=== PATIENT | male | born 2000 | race Caucasian/White ===

== ENCOUNTER 2023-11-17 19:07 | Emergency (ER) | payer OTHER ==
[~2023-11-17] VITALS: Ht 185.4 cm; Wt 110.4 kg
[2023-11-17] MEDS ORDERED: NEURONTIN300 MG PO (21:51)
[2023-11-17] MEDS ORDERED: METHOCARBAMOL500 MG PO (21:52)
[2023-11-17] MEDS ORDERED: METOPROLOL TART25 MG PO (21:53)
[2023-11-17] MEDS ORDERED: HYDRALAZINE HCL50 MG PO (21:54)
[2023-11-17] MEDS ORDERED: GABAPENTIN 300 MG CAP PO ONE (22:15)
[2023-11-17 22:49] LABS: BASOPHILS 0.6 % (0-2); EOSINOPHILS 3.6 % (0-6); LYMPHOCYTES 11.9 % (24-44); MCH 27.6 (27-36); MCHC 33.5 g/dl (30-36); MCV 82.5 fl (81-99); MONOCYTES 7.6 % (0-12); NEUTROPHILS 76.3 % (39-80); PLATELET COUNT 306 K/uL (140-440); RBC 5.45 M/ul (4.3-5.7); RDW 13.7 (10.5-15.0)
[2023-11-17 23:05] LABS: BILIRUBIN, URINE NEGATIVE (negative); BLOOD/HGB, URINE NEGATIVE (Negative); KETONE, URINE NEGATIVE (Negative); LEUK ESTERASE, URINE NEGATIVE (negative); NITRITE, URINE NEGATIVE (negative); PH, URINE 7.5 (5-7)
[2023-11-17 23:10] LABS: ALBUMIN 3.7 g/dL (3.4-5.0); ALBUMIN/GLOBULIN RATIO 1.12 (1.1-2.4); ALCOHOL, MEDICAL <3 ng/dL (<3); ALKALINE PHOSPHATASE 117 U/L (46-116); ALT (SGPT) 40 U/L (14-59); ANION GAP 12.9 (7-21); AST (SGOT) 25 U/L (15-37); BILIRUBIN, TOTAL 0.6 ng/dL (0.2-1.0); BUN/CREATININE RATIO 9.09 (6.0-28.6); CALCIUM 9.4 mg/dL (8.5-10.1); CARBON DIOXIDE 28 mmol/L (21-32); CHLORIDE 102 mmol/L (98-107); CREATININE, SERUM 0.88 mg/dL (0.70-1.30); GLOMERULAR FILTRATION RATE,EST 124 mL/min (>60); POTASSIUM 3.9 mmol/L (3.5-5.1); UREA NITROGEN 8 mg/dL (7-18)
[2023-11-17 23:39] LABS: AMPHETAMINES, URINE POSITIVE (NEGATIVE); BARBITURATES, URINE NEGATIVE (NEGATIVE); BENZODIAZEPINE, URINE NEGATIVE (NEGATIVE); BUPRENORPHINE, URINE NEGATIVE (NEGATIVE); CANNABINOID, URINE NEGATIVE (NEGATIVE); COCAINE, URINE NEGATIVE (NEGATIVE); ECSTASY, URINE NEGATIVE (NEGATIVE); FENTANYL, URINE POSITIVE (NEGATIVE); METHADONE, URINE NEGATIVE (NEGATIVE); OPIATES, URINE NEGATIVE (NEGATIVE); OXYCODONE, URINE NEGATIVE (NEGATIVE); PHENCYCLIDINE, URINE NEGATIVE (NEGATIVE)
[2023-11-18] MEDS ORDERED: HYDROCHLOROTHIA25 MG PO (00:21)
[2023-11-18] MEDS ORDERED: NEURONTIN300 MG PO (00:21)
[2023-11-18 00:51] VITALS: BP 127/77
--- NOTE | 2023-11-19 23:17 | EKG ---
[facility] [address] [place] [address] Signed Sinus rhythm with marked sinus arrhythmia Otherwise normal ECG No previous ECGs available Confirmed by Miya Huerta MD () on 11/19/2023 11:17:33 PM Electronically Signed By: MIYA HUERTA MD 11/19/23 2317 PATIENT NAME: ARMANDO READ Electrocardiogram DATE OF : [birth year] PHYSICIAN: MIYA HUERTA MD REPORT #: [id number] REPORT IS CONFIDENTIAL AND NOT TO BE RELEASED WITHOUT AUTHORIZATION
== END 2023-11-18 00:54 | disposition home or self-care (01) ==
LOC: ED 19:07
PROVIDERS: Internal Medicine
DX: R60.0 Localized edema (principal); F11.10 Opioid abuse, uncomplicated; F15.10 Other stimulant abuse, uncomplicated; Z79.899 Other long term (current) drug therapy
CPT/HCPCS: 36415; 71045; 80053; 80307; 81003; 83880; 84484; 85025; 85379; 93005; 93010; 99284-25; A9270; G0480

== ENCOUNTER 2023-11-23 14:34 | Inpatient (IN) | payer OTHER ==
[~2023-11-23] VITALS: Ht 185.4 cm; Wt 99.6 kg
--- OUTSIDE RECORDS SUMMARY | ~2023-11-23 | XMS | Continuity of Care Document ---
Demographics + + + | Address | [address] | | | [place] [address] | + + + | Preferred Language | Unknown | + + + | Marital Status | Unknown | + + + | Caodaism Affiliation | Unknown | + + + | Race | White | + + + | Ethnic Group | Not or | + + + Author + + + | Author | [facility] | + + + | Organization | [facility] | + + + | Address | [address] | | | [place] [address] | + + + | Phone | | + + + Care Team Providers + + + + | Care Independent Film Maker Name | Role | Phone | + + + + Unavailable | Unavailable | + + + + Allergies No information. Encounters No information. Functional Status No information. Immunizations No information. Medications No information. Problems + + + + | date | description | facility | + + + + | 2023-09-28 13:28:58 | Cerebral palsy, | [facility] | | | unspecified | | + + + + | 2023-09-28 13:28:58 | Personal history of other | [facility] | | | mental and behavioral | | | | disorders | | + + + + | 2023-09-28 13:28:58 | Personal history of other | [facility] | | | specified conditions | | + + + + | 2023-09-28 14:25:47 | Cerebral palsy, | [facility] | | | unspecified | | + + + + | 2023-09-28 14:25:47 | Unspecified convulsions | [facility] | + + + + | 2023-09-28 14:25:47 | Personal history of other | [facility] | | | mental and behavioral | | | | disorders | | + + + + | 2023-09-28 14:25:47 | Personal history of other | [facility] | | | specified conditions | | + + + + | 2023-09-29 22:28:46 | Panic disorder (episodic | [facility] | | | paroxysmal anxiety) | | + + + + | 2023-09-29 22:28:46 | Generalized anxiety | [facility] | | | disorder | | + + + + | 2023-09-29 22:28:46 | Other chronic pain | [facility] | + + + + | 2023-09-29 22:28:46 | Low back pain, unspecified | [facility] | | | | | + + + + Procedures No information. Results/Labs No information. Social History +--------+ + + | date | description | facility | +--------+ + + Vital Signs No information."
--- OUTSIDE RECORDS SUMMARY | ~2023-11-23 | XMS | Continuity of Care Document ---
Demographics + + + | Address | [address] | | | [place] [address] | + + + | Preferred Language | Unknown | + + + | Marital Status | Unknown | + + + | Alevism Affiliation | Unknown | + + + | Race | White | + + + | Ethnic Group | Not or | + + + Author + + + | Author | [facility] | + + + | Organization | [facility] | + + + | Address | [address] | | | [place] [address] | + + + | Phone | | + + + Care Team Providers + + + + | Care Kayak Maker Name | Role | Phone | [...]
[~2023-11-23 14:34] MED LIST: HYDRALAZINE HCL50 MG PO; HYDROCHLOROTHIA25 MG PO; METHOCARBAMOL500 MG PO; METOPROLOL TART25 MG PO; NEURONTIN300 MG PO
--- OUTSIDE RECORDS SUMMARY | 2023-11-23 14:40 | XMS ---
PreManage Notification: ARMANDO READ Security Distribution Lineman Events No recent Security Events currently on file CRITERIA MET - [place] [address] Visits in 30 Days CARE PROVIDERS LATOYA SUMMERS Nurse Practitioner: Family Current PHONE: [phone] [facility] Internal Medicine [facility] \F\ [facility] PHONE: [phone] Sonali has no Care Guidelines for this patient. EIta VISIT COUNT (12 MO.) [facility] [address] TOTAL 5 NOTE: Visits indicate total known visits. ED/UCC VISIT TRACKING (12 MO.) 11/23/2023 14:34 [facility] TYPE: Emergency COMPLAINT: - POSS INFECTION 11/17/2023 19:07 [facility] TYPE: Emergency COMPLAINT: - FOOT SWELLING DIAGNOSES: - Localized edema - Opioid abuse, uncomplicated - Other ocean transportation intermediary (current) drug therapy - Other specified soft tissue disorders - Other stimulant abuse, uncomplicated 08/13/2023 21:57 [facility] TYPE: Emergency COMPLAINT: - right arm wound check, worried abount an infection DIAGNOSES: - Cellulitis of right upper limb - Possibly infected laceration - right arm wound check, worried abount an infection 08/04/2023 22:40 [facility] TYPE: Emergency COMPLAINT: - Right arm wound check, DIAGNOSES: - Encounter for other specified aftercare - Right arm wound check, - Wound Check 08/02/2023 17:58 [facility] TYPE: Emergency COMPLAINT: - Right arm profuse bleeding, DIAGNOSES: - Laceration without foreign body of right upper arm, initial encounter - Arm Injury - Laceration - Right arm profuse bleeding, INPATIENT VISIT TRACKING (12 MO.) No inpatient visits to display in this time frame [id number]
[2023-11-23] MEDS ORDERED: DAPTOmycin 500 MG/10 ML VIAL IV ONE ×2 (15:00→15:30)
[2023-11-23 15:13] LABS: HEMATOCRIT 42.7 % (35.0-50.0); HEMOGLOBIN 14.5 g/dL (12.0-18.0); MCH 27.2 (27-36); MCHC 33.9 g/dl (30-36); MCV 80.3 fl (81-99); PLATELET COUNT 447 K/uL (140-440); RBC 5.31 M/ul (4.3-5.7); RDW 13.4 (10.5-15.0)
[2023-11-23 15:24] LABS: ALBUMIN 3.3 g/dL (3.4-5.0); ALBUMIN/GLOBULIN RATIO 0.8 (1.1-2.4); ANION GAP 7.7 (7-21); BILIRUBIN, TOTAL 1.4 ng/dL (0.2-1.0); BUN/CREATININE RATIO 13.07 (6.0-28.6); CALCIUM 9.1 mg/dL (8.5-10.1); CREATININE, SERUM 1.3 mg/dL (0.70-1.30); POTASSIUM 2.7 mmol/L (3.5-5.1); PROTEIN, TOTAL 7.4 g/dL (6.4-8.2)
[2023-11-23 15:28] LABS: EOSINOPHILS, MANUAL DIFF 1; LYMPHOCYTES, MANUAL DIFF 15; MONOCYTES, MANUAL DIFF 8; NEUTROPHILS, MANUAL DIFF 76
[2023-11-23] MEDS ORDERED: POTASSIUM CHLORIDE 10 MEQ/100 ML BAG IV ONE (15:45)
[2023-11-23] MEDS ORDERED: CEFEPIME HCL/D5W 2 GM/100 ML PIGGYBACK IV ONE (15:45)
[2023-11-23] MEDS ORDERED: POTASSIUM CHLORIDE 20 MEQ/15 ML CUP PO ONE (15:45)
[2023-11-23 16:00] LABS: LACTIC ACID, BLOOD 1.3 mmol/L (0.4-2.0)
[2023-11-23] MEDS ORDERED: SODIUM CHLORIDE 0.9% 1,000 ML IV SCH ×2 (16:00→17:30)
[2023-11-23] MEDS ORDERED: DAPTOmycin 500 MG/10 ML VIAL IV SCH (17:16)
[2023-11-23] MEDS ORDERED: CEFTRIAXONE/SODIUM CHLORIDE 2 GM/100 ML PIGGYBACK IV SCH (17:17)
[2023-11-23] MEDS ORDERED: HYDROCODONE/ACETA 7.5/325 TAB PO PRN (17:30)
--- NOTE | 2023-11-23 18:01 | NUR ---
PT TO FLOOR FROM ER PER STRETCHER, REPORT RECEIVED FROM CANDE EVANS. PT IN BED WTIH CALL LIGHT WITHIN REACH.
[2023-11-23 18:45] VITALS: BP 129/75
--- NOTE | 2023-11-23 19:20 | NUR ---
REPORT RECEIVED FROM PAPO EVANS. pt RESTING IN THE BED. BOARD UPDATED. CALL LIGHT WITHIN REACH.
--- NOTE | 2023-11-23 20:55 | NUR ---
PATIENTS COUSIN CALLED ASKING TO SPEAK TO HIM. I ASKED PT IS THAT WAS OK AND HE SAID YES AND GAVE ME HIS PHONE NUMBER TO PASS ALONG TO THE COUSIN. PT IS SITTING UP IN BED AND HAS CALL LIGHT.
[2023-11-23 21:10] VITALS: BP 128/68
[2023-11-23 21:12] VITALS: BP 128/68
--- NOTE | 2023-11-23 21:15 | NUR ---
ASSESSMENT AND VITAL SIGNS DONE. pt UP AND WANTED SOMETHING TO EAT. WHEN THIS NURSE WENT IN THE RM THE pt HAD GOTTEN UP ON HIS OWN AND UNHOOKED HIS IV FROM HIS ARM TO GO TO THE BATHROOM. HE WAS REMINDED THAT HE HAD TO CALL BEFORE HE GOES AND THAT HE HAD TO PEE IN THE URINAL SO WE CAN MEASURE IT. AND TO CALL BEFORE HE GETS UP SO WE CAN TAKE THE IV WITH HIM AND THAT HE SHOULDN'T UNHOOK HIS OWN IV. pt AGREED. REDNESS ON UPPER THIGH AND HOT TO TOUCH. SANDWHICH BOX PROVIDED FOR pt. pt DENIES ANY NEEDS AT THIS TIME. CALL LIGHT WITHIN REACH.
[2023-11-23] MEDS ORDERED: POLYETHYLENE GLYCOL 3350 1 PACKET PO SCH (22:34)
[2023-11-23] MEDS ORDERED: SENNOSIDES/DOCUSATE 1 EA TAB PO SCH (22:34)
[2023-11-24] VITALS (12 sets, daily range): BP systolic 117–135; BP diastolic 50–69
--- NOTE | 2023-11-24 00:25 | NUR ---
pt RESTING IN THE BED WITH EYES CLOSED. RR EVEN AND UNLABORED. CALL LIGHT WITHIN REACH. BED ALARM ON.
--- NOTE | 2023-11-24 02:58 | NUR ---
pt RESTING IN THE BED WITH EYES CLOSE. RR EVEN AND UNLABORED. CALL LIGHT WITHIN REACH.
--- NOTE | 2023-11-24 03:13 | NUR ---
pt RESTING IN THE BED WITH EYES CLOSED. RR EVEN AND UNLABORED. CALL LIGHT WITHIN REACH. BED ALARM ON.
--- NOTE | 2023-11-24 04:32 | NUR ---
pt RESTING IN THE BED WITH EYES CLOSED. RR EVEN AND UNLABORED. CALL LIGHT WITHIN REACH.
[2023-11-24 05:41] LABS: BASOPHILS 0.2 % (0-2); HEMATOCRIT 41.3 % (35.0-50.0); HEMOGLOBIN 14.1 g/dL (12.0-18.0); LYMPHOCYTES 12.4 % (24-44); MCH 27.2 (27-36); MONOCYTES 9.4 % (0-12); PLATELET COUNT 406 K/uL (140-440); RBC 5.17 M/ul (4.3-5.7)
[2023-11-24 05:51] LABS: ANION GAP 7.7 (7-21); BUN/CREATININE RATIO 9.21 (6.0-28.6); CALCIUM 8.7 mg/dL (8.5-10.1); CREATININE, SERUM 0.76 mg/dL (0.70-1.30); POTASSIUM 2.7 mmol/L (3.5-5.1)
--- NOTE | 2023-11-24 06:16 | NUR ---
pt RESTED MOST OF THE NIGHT. PRN PAIN MEDICATION ADMINISTERED X2. IVF INFUSING ALL NIGHT. pt SBA TO THE BR FOR LINE/TUBE MANAGEMENT.
--- NOTE | 2023-11-24 07:15 | NUR ---
REPORT RECIEVED FROM NATHAN SNOW. PT RESTING IN BED ON LEFT SIDE, EYES CLOSED, RR EVEN AND UNLABORED. IV INFUSING WNL. NO NEEDS IDENTIFIED AT THIS TIME. CALL LIGHT IN REACH.
[2023-11-24] MEDS ORDERED: POTASSIUM CHLORIDE 10 MEQ TABCR PO SCH (08:00)
--- NOTE | 2023-11-24 08:21 | NUR ---
IN TO ADMINISTER MEDICATION, SEE MAR. PT RESTING IN BED WITH EYES CLOSED, RR EVEN AND UNLABORED. PT RESPONDS WHEN ADDRESSED. PT TAKES PO MEDICATIONS WITH NO ISSUES. OFFERED BREAKFAST TRAY, PT ACCEPTS. TRAY PROVIDED. PT SITTING UP IN BED EATING BREAKFAST. PT DENIES ANY OTHER NEEDS FROM THIS RN AT THIS TIME. CALL LIGHT IN REACH. BED ALARM ON.
--- NOTE | 2023-11-24 09:29 | NUR ---
IN TO ADMINISTER MEDICAITONS, SEE MAR. DR. GRAY IN ROOM AND TALKS WITH PT. PT SITS UP IN BED AND TAKES PO MEDICATION WITH NO ISSUES. PT REPORTING PAIN 5/10 TO RIGHT THIGH. PRN PAIN MEDICATION ADMINISTERED, SEE MAR. OFFERED ICE PACK, PT DENIES. ASSESSMENT COMPLETE. LUNG SOUNDS CLEAR IN RUL AND EMILY. DIMINISHED IN RLL AND LLL. BOWEL TONES ACTIVE. PT REPORS ABD TENDERNESS WITH PALPATION TO RLQ. PEDAL PULSES PALPABLE, EQUAL. RIGHT THIGH REDNESS NOTED, WARM TO TOUCH. RIGHT THIGH OUTLINED. REDNESS NOTED TO TOP OF LEFT FOOT. PT STATES "I THINK IT IS FROM MY SLIDES RUBBING ON THE TOP OF MY FOOT." PT DENIES PAIN TO TOP OF LEFT FOOT WHEN TOUCHED, NOT WARM TO TOUCH. SCAB OLIVIA NOTED TO NOSTRILS. PT DENIES NUMBNESS OR TINGLING AT THIS TIME. IV FLUSHES AND IS INFUSING WNL. PT REPORTING TOILETING NEEDS. SBA FROM BED TO RESTROOM AND BACK TO BED. PT DENIES ANY OTHER NEEDS AT THIS TIME. CALL LIGHT IN REACH. BED ALARM ON.
--- NOTE | 2023-11-24 11:37 | NUR ---
IN TO ROUND ON PT. PT RESTING IN BED WITH EYES CLOSED, RR EVEN AND UNLABORED. CALL LIGHT IN REACH. BED ALARM ON.
[2023-11-24] MEDS ORDERED: PHARMACY RENAL DOSE ADJUSTMENT 1 DOSE MISC PO SCH (12:00)
--- NOTE | 2023-11-24 12:59 | NUR ---
WENT IN TO CHECK ON PATIENT. PATIENT WAS STILL SLEEPING WOKE HIM UP TO ASK IF HIM DOES HE WANT TO EAT LUNCH AND HE SAID YES SO SET HIM UP FOR LUNCH.
--- NOTE | 2023-11-24 13:14 | NUR ---
IN SHREYAS PINO INFORMED THIS RN THAT PT IS ASKING ABOUT "LAXATIVES." PT SITTING UP IN BED AND RESPONDS WHEN ADDRESSED. PT STATES "THE PAIN, IS SITLL THERE, BUT IT IS NOT THE SHOOTING PAIN LIKE IT WAS BEFORE. IT IS FEELING BETTER." PT ASKING ABOUT MEDICATIONS FOR CONSTIPATION. PT EDUCATED ON MEDICATIONS (MIRALAX AND SENOKOT) THAT PT STARTED. PT AGREEABLE. PT DENIES ANY OTHER NEEDS FROM THIS RN. CALL LIGHT IN REACH. BED ALARM ON. SHREYAS PEDERSEN IN ROOM.
--- NOTE | 2023-11-24 15:22 | NUR ---
IN TO ROUND ON PT. PT RESTING IN BED. PT AWAKENS WHEN ADDRESSED. ASSESSMENT COMPLETE. LUNG SOUNDS CLEAR. REDNESS TO RIGHT THIGH NOTED, WARM TO TOUCH. REDNESS DOES NOT EXCEED OUTLINED AREA. PT REPORTING PAIN 5/10 TO RIGHT THIGH. PT REPORTING TOILETING NEEDS. SBA FROM BED TO RESTROOM AND BACK TO BED. PT DENIES ANY OTHER NEEDS AT THIS TIME. CALL LIGHT IN REACH. BED ALARM ON.
--- NOTE | 2023-11-24 15:51 | NUR ---
MED REC COMPLETE
[2023-11-24] MEDS ORDERED: HYDROXYZINE HCL50 MG PO (15:52)
--- NOTE | 2023-11-24 17:31 | NUR ---
IN TO ROUND ON PT. PT RESTING IN BED ON LEFT SIDE, EYES CLOSED, RR EVEN AND UNLABORED. PT AWAKENS TO VOICE AND LIGHT TOUCH ON FOREARM. OFFERED DINNER TRAY, PT ACCEPTS. PT SITS UP IN BED AND TRAY PROVIDED. NEW BAG OF IV FLUIDS STARTED, SEE MAR. PT DENIES ANY OTHER NEEDS FROM THIS RN. CALL LIGHT IN REACH. SHREYAS PEDERSEN IN ROOM TO OBTAIN VITALS.
--- NOTE | 2023-11-24 19:25 | NUR ---
SHIFT REPORT RECEIVED FROM DAYSHIFT NATHAN ESTEVEZ AT BEDSIDE. pt AWAKE AND RECENTLY RETURNED FROM BATHROOM. TAXATION INSPECTOR ALSO IN ROOM. IV SITE WNL, FLUIDS INFUSING WNL. pt EDUCATED TO USE CALL LIGHT BEFORE GETTING OOB AND TO LEAVE IV SITE ALONE AND TO CALL STAFF IF BEEPING OCCURS. pt VERBALIZED UNDERSTANDING. BOARD UPDATED AND CALL LIGHT IN REACH. REDDNESS NOTED TO POSTERIOR RIGHT THIGH, WITHIN OUTLINE.
--- NOTE | 2023-11-24 19:40 | NUR ---
CALL LIGHT ANSWERED. PT NEEDED TO USE BATHROOM. UNDERGROUND REPAIRER SBA WITH IV TOWER. URINAL EMTPIED AND OUTPUT NOTED. PT BACK IN BED. PT STATES NO FURTHER NEEDS AT THIS TIME. CALL LIGHT WITHIN REACH.
--- NOTE | 2023-11-24 20:12 | NUR ---
COTTAGE ATTENDANT OBTAINED VITALS AND I&O. PT STATES NO FURTHER NEEDS AT THIS TIME. CALL LIGHT WITHIN REACH.
--- NOTE | 2023-11-24 20:27 | NUR ---
scheduled meds given-see emar. pt finished miralax during assessment. pt awake and resting in bed, reddness remains within outline-proximal portion of reddened area at outlined area/just beyond. will continue to monitor. pt reports slight numbness to right toes, but able to feel wnl when staff touch ble. bilateral edema noted to bilateral feet, +1. pt reports edema to ble at home. iv site wnl, fluids infusing as directed. vss, fresh ice water provided. call light in reach, pt has somewhat flat affect and verbalizes eagerness to be discharged home.
--- NOTE | 2023-11-24 21:30 | NUR ---
CALL LIGHT ANSWERED, pt IN BATHROOM AND RETURNING TO BED. 400MLS FROM URINAL EMPTIED. pt DENIES ADDITIONAL NEEDS OR CONCERNS, CALL LIGHT IN REACH. pt TALKING ON THE PHONE.
--- NOTE | 2023-11-24 22:30 | NUR ---
no am labs ordered. dr lawrence in [facility], boardinghouse keeper kevin discussed with . verbal order received for am bmp.
--- NOTE | 2023-11-24 23:19 | NUR ---
rounded on pt, pt resting quietly in bed on left side. no distress noted. call light in reach.
--- NOTE | 2023-11-25 00:07 | NUR ---
ROUNDED ON pt, pt RESTING QUIETLY IN BED, AWOKE BRIEFLY WHILE ASSESSING IV SITE. IV SITE WNL, FLUIDS INFUSING DIRECTED. pt DENIES NEEDS OR CONCERNS WHEN ASKED. CALL LIGHT IN REACH.
--- NOTE | 2023-11-25 01:41 | NUR ---
rounded on pt, charge entry clerk recently out of room to hang new bag iv fluids. iv site remains wnl, fluids infusing as directed. no change to reddness to posterior right thigh. pt up sba to void, back in bed. no additional needs or concerns. call light in reach.
--- NOTE | 2023-11-25 03:49 | NUR ---
rounded on pt, pt resting quietly in bed with eyes closed and on ra. rr even and unlabored. iv site wnl, fluids infusing as directed. call light in reach.
--- NOTE | 2023-11-25 04:37 | NUR ---
iv pump alarming, distal occlusion. issue resolved, iv fluids resumed and infusing wnl. call light in reach.
[2023-11-25 05:28] LABS: ANION GAP 9.6 (7-21); BUN/CREATININE RATIO 7.14 (6.0-28.6); CALCIUM 8.9 mg/dL (8.5-10.1); CREATININE, SERUM 0.7 mg/dL (0.70-1.30); POTASSIUM 3.6 mmol/L (3.5-5.1)
[2023-11-25 05:39] VITALS: BP 131/62
--- NOTE | 2023-11-25 05:42 | NUR ---
EDUCATION ASSOCIATE OBTAINED VITALS AND I&O. PT STATES NO FURTHER NEEDS AT THIS TIME. CALL LIGHT WITHIN REACH.
--- NOTE | 2023-11-25 06:06 | NUR ---
ROUNDED ON pt, pt RESTING QUIETLY. IV SITE WNL, FLUIDS INFUSING DIRECTED. pt DENIES ADDITIONAL NEEDS OR CONCERNS WHEN ASKED, CALL LIGHT IN REACH.
--- NOTE | 2023-11-25 06:41 | NUR ---
pt had a good night, cluster care when possible. vss, pt sba with ambulation, steady on feet. reddness to right thigh within/at outline. tolerating regular diet, denied need for pain and nausea meds. calls appropriately. iv fluids infusing wnl.
--- NOTE | 2023-11-25 07:31 | NUR ---
RECIEVED SHIFT REPORT FROM NATHAN BUSTAMANTE. PT RESTING IN BED, EYES CLOSED. BRREATHING EVEN AND UNLABORED. CALL LIGHT IN REACH.
--- NOTE | 2023-11-25 08:32 | NUR ---
PT BREAKFAST IS SITTING ON THE SINK IN HIS ROOM. PT IS SLEEPING IN HIS BED ON HIS LEFT SIDE. SOCCER REFEREE ATEMPTED TO WAKE PT BY SAYING HIS NAME AND PT REMAINED SLEEPING. SOCCER REFEREE UPDATED NAMES ON PT BOARD. CALL LIGHT IS WITHIN REACH
[2023-11-25 09:50] VITALS: BP 123/69
--- NOTE | 2023-11-25 09:53 | NUR ---
UR CLINICAL REVIEW: [facility] CRITERIA FOR CELLULITIS [facility] 11/23/23 @ 1716 ORDER MATCHES STATUS AUTH PENDING CLINICAL REVIEW, CLINICALS FAXED THIS MORNING PLAN TO DC TO HOME WHEN STABLE AND READY. 11/28/23
--- NOTE | 2023-11-25 09:56 | NUR ---
MORNING ASSESSMENT COMPLETE. PT IS UPSET ABOUT HAVING TO STAY ANOTHER DAY. REASSURED PT THE REASONS WHY. PT REMAINS UPSET AND ON THE PHONE. CELLULITIS REMAINS WITHIN THE OUTLINED REGION. PT DENIES PAIN. REFUSES BREAKFAST. CALL LIGHT IN REACH.
--- NOTE | 2023-11-25 10:31 | NUR ---
WENT TO PATIENT'S ROOM TO DISCUSS THE DC PLAN.THE PATIENT IS SLEEPING AT THIS TIME. THE OPEN HEARTH FURNACE OPERATOR HELPER WILL RETURN TO DO THE ASSESSMENT LATER TODAT.
[2023-11-25 14:31] VITALS: BP 133/72
--- NOTE | 2023-11-25 14:41 | NUR ---
PATIENT CONTINUES TO SLEEP. CM WILL FINISH THE DISCHARGE ASSESSMENT ONCE PT STAYS AWAKE. PATIENT MAY NOT HAVE A PCP. PATIENT LIVES IN [place] PER CURRENT INFORMATION THE PATIENT GAVE ON ADMIT.
--- NOTE | 2023-11-25 18:35 | NUR ---
PT STATES THAT HE HAS HAD NO APPETITE TODAY AND THAT HE IS NOT HUNGRY
[2023-11-25 18:36] VITALS: BP 124/53
[2023-11-25 20:22] VITALS: BP 132/79
[2023-11-25 20:24] VITALS: BP 132/79
--- NOTE | 2023-11-25 20:28 | NUR ---
PT AWAKENS EASILY, NO C/O PAIN. IVF INFUSING LAC, ON ROOM AIR, CLEAR LUNGS, STATED HAD A BM TODAY. R BELOW BUTTOCKS/UPPER BACK THIGH AREA REDNESS AND INDURATION MID CNETER, NOT OPEN, NO DRAINAGE, HOT TO TUCH, RED. LIFS LEG VERY WELL, COOP WITH ASSESSMENT. DENIES S/SX WITHDRAWALS
--- NOTE | 2023-11-26 01:23 | NUR ---
reting, IVF infusing, turns and repositions self in bed, no c/o pain
[2023-11-26 04:56] VITALS: BP 112/55
--- NOTE | 2023-11-26 04:59 | NUR ---
HAS SLEP THIS SHIFT, WAS MEDICATED X1 PER C/O BACK OF R THIGH AREA, REDNESS AND INDURATION NO CHANGES, IVF INFUSING, TOLERATING LARGE AMOUTNS FO LIQUIDS AND VOIDED QS. IVF INFUSING. NO C/O S/S OPIOD OR ETOH WITHDRAWALS, FLAT AFFECT, COOPERATIVE
--- NOTE | 2023-11-26 07:33 | NUR ---
RECIEVED SHIFT REPORT FROM NATHAN CONTRERAS. PT IS RESTING IN BED, EYES CLOSED. BREATHING EVEN AND UNLABORED. CALL LIGHT IN REACH
[2023-11-26] MEDS ORDERED: CEFADROXIL1 GM PO (08:51)
--- NOTE | 2023-11-26 10:00 | NUR ---
MORNING ASSESSMENT COMPLETE. PT EAGER TO LEAVE. DISCUSSED WITH PT AFTER ABX IS DONE DISCHARGE WILL BE NEXT. NO NEW CHANGES WITH PT ASSESSMENT. CALL LIGHT IN REACH
[2023-11-26 10:07] VITALS: BP 138/91
== END 2023-11-26 10:20 | disposition home or self-care (01) | DRG 603 ==
LOC: ED 14:34 → MS 17:17
PROVIDERS: Emergency Medicine; ADMIT Internal Medicine; ATTEND Internal Medicine
DX: L03.115 Cellulitis of right lower limb (principal); F10.90 Alcohol use, unspecified, uncomplicated; F15.90 Other stimulant use, unspecified, uncomplicated; F17.210 Nicotine dependence, cigarettes, uncomplicated; Z79.899 Other long term (current) drug therapy
CPT/HCPCS: 36415; 76882; 80048; 80053; 83605; 85025; 87040; A9270; J0692; J0696; J0878; J3480; J7030